=== PATIENT | female | born 1960 | race American Indian/Alaskan Native ===

== ENCOUNTER 2017-09-30 07:28 | Day surgery (SDC) | payer BC ==
[2017-09-21 10:31] VITALS: BMI 49.4
[2017-09-30] MEDS ORDERED: Propofol 10 mg/ml Inj (20 ML) ONE ×2 (08:53→09:19)
[2017-09-30] MEDS ORDERED: Midazolam 2 MG/2 ML VIAL ONE (08:53)
[2017-09-30] MEDS ORDERED: Sodium Chloride 0.9% 1,000 ML IV SCH (09:00)
[2017-09-30 10:04] VITALS: O2SAT 99
[2017-09-30 10:14] VITALS: BP 135/69; PULSE 57; RESP 20; TEMP 97.5
== END 2017-09-30 10:44 | disposition home or self-care (01) ==
LOC: ENDO 07:28
PROVIDERS: ATTEND Specialist
DX: D12.2 Benign neoplasm of ascending colon (principal); K62.5 Hemorrhage of anus and rectum; K64.8 Other hemorrhoids; M19.90 Unspecified osteoarthritis, unspecified site; E78.5 Hyperlipidemia, unspecified; E66.9 Obesity, unspecified; Z68.42 Body mass index [BMI] 45.0-49.9, adult
CPT/HCPCS: 45385; 88305; J2250; J2704; J7040